=== PATIENT | male | born 1960 | race Caucasian/White ===

== ENCOUNTER 2016-09-10 09:03 | Emergency (ER) | payer OTHER ==
[~2016-09-10] VITALS: Ht 182.9 cm; Wt 104.6 kg
[~2016-09-10 09:03] MED LIST: BACTRIM,SEPT1 TABLET PO; BACTROBAN OINTM22 GM TP; CIPRO500 MG PO; FLAGYL500 MG PO; KEFLEX500 MG PO; MAGNACET PO; NAPRELAN750 MG PO; NAPROSYN500 MG PO; NORCO 5/3251 TABLET PO; PERCOCET 5/31 TABLET PO; VIBRAMYCIN100 MG PO; ZOFRAN ODT4 MG PO
[2016-09-10] MEDS ORDERED: PROTONIX40 MG PO (09:36)
[2016-09-10] MEDS ORDERED: ZYRTEC10 M2 PO (09:36)
[2016-09-10] MEDS ORDERED: LATANOPROST2.5 ML BOTH EYES (09:37)
[2016-09-10] MEDS ORDERED: ALLERGY RELIE15.8 ML BOTH NARES (09:37)
[2016-09-10] MEDS ORDERED: MAGNESIUM400 M1 PO (09:37)
[2016-09-10] MEDS ORDERED: ROSUVASTATIN CA10 MG PO (09:37)
[2016-09-10] MEDS ORDERED: NAPROXEN500 MG PO (10:33)
[2016-09-10] MEDS ORDERED: PREDNISONE20 MG PO (10:33)
[2016-09-10 10:44] VITALS: BP 160/98
== END 2016-09-10 10:44 | disposition home or self-care (01) ==
LOC: EME 09:03
DX: M54.12 Radiculopathy, cervical region (principal); E78.5 Hyperlipidemia, unspecified; Z87.442 Personal history of urinary calculi; Z86.14 Personal history of Methicillin resistant Staphylococcus aureus infection; F17.200 Nicotine dependence, unspecified, uncomplicated
CPT/HCPCS: 72125; 99281; 99283

== ENCOUNTER 2017-02-13 10:16 | Emergency (ER) | payer OTHER ==
[~2017-02-13] VITALS: Ht 182.9 cm; Wt 106.8 kg
[~2017-02-13 10:16] MED LIST changes: +ALLERGY RELIE15.8 ML BOTH NARES; +LATANOPROST2.5 ML BOTH EYES; +MAGNESIUM400 M1 PO; +NAPROXEN500 MG PO; +PREDNISONE20 MG PO; +PROTONIX40 MG PO; +ROSUVASTATIN CA10 MG PO; +ZYRTEC10 M2 PO
[2017-02-13 10:47] LABS: HEMATOCRIT 44.3 % (38.0-50.0); MCH 29.4 PG (29.0-34.0); MCHC 33.6 G/DL (30.0-36.0); MCV 87.5 FL (86-99); MEAN PLAT.VOLUME 9.5 uM^3 (9.0-12.4); PLATELET COUNT 185 K/uL (156-360); RBC DIS.WIDTH-CV 12.5 % (11.8-14.6); RBC DIS.WIDTH-SD 39.9 % (39-53); RED BLOOD COUNT 5.06 M/uL (4.00-5.50); WHITE BLOOD COUNT 6.9 K/uL (4.1-10.2)
[2017-02-13 11:15] LABS: CHLORIDE 105 mEq/L (99-109); POTASSIUM 4.1 mEq/L (3.7-5.4); SODIUM 142 mEq/L (136-147)
[2017-02-13 11:18] LABS: ANION GAP 12 MEQ/L (2-14)
[2017-02-13 11:20] LABS: GFR ESTIMATE (CALCULATED) > 59 mL/min/
[2017-02-13 11:21] LABS: UREA NITROGEN (BUN) 15 mg/dL (9-23)
[2017-02-13 11:40] LABS: GLUCOSE 112 mg/dL (70-99)
[2017-02-13] MEDS ORDERED: GRALISE300 MG PO (12:28)
[2017-02-13] MEDS ORDERED: THERALITH XR T1 EACH PO (12:30)
[2017-02-13] MEDS ORDERED: BRAIN MIGHT-DH1 EACH PO (12:30)
[2017-02-13 12:38] LABS: TOTAL BILIRUBIN 0.4 mg/dL (0.0-1.0)
[2017-02-13 12:39] LABS: ALKALINE PHOSPHATASE 82 IU/L (3-129)
[2017-02-13 12:41] LABS: DIRECT BILIRUBIN 0.2 mg/dL (0.0-0.3)
[2017-02-13 12:42] LABS: LIPASE 42 U/L (1.0-51.0)
[2017-02-13] MEDS ORDERED: ZOFRAN ODT4 MG PO (14:43)
[2017-02-13] MEDS ORDERED: BENTYL20 MG PO (14:43)
[2017-02-13] MEDS ORDERED: CARAFATE1 GM PO (14:43)
[2017-02-13 15:43] VITALS: BP 134/89
== END 2017-02-13 15:44 | disposition home or self-care (01) ==
LOC: EME 10:16
DX: K92.1 Melena (principal); K92.2 Gastrointestinal hemorrhage, unspecified; R10.84 Generalized abdominal pain; Z87.442 Personal history of urinary calculi; E78.5 Hyperlipidemia, unspecified; Z86.14 Personal history of Methicillin resistant Staphylococcus aureus infection; F17.200 Nicotine dependence, unspecified, uncomplicated
CPT/HCPCS: 74177; 80048; 80076; 83690; 85027; 86900; 86901; 99281; 99284; J1885; J7040

== ENCOUNTER 2017-08-31 07:34 | Emergency (ER) | payer OTHER ==
[~2017-08-31] VITALS: Ht 182.9 cm; Wt 108.7 kg
[~2017-08-31 07:34] MED LIST changes: +BENTYL20 MG PO; +BRAIN MIGHT-DH1 EACH PO; +CARAFATE1 GM PO; +GRALISE300 MG PO; +THERALITH XR T1 EACH PO
[2017-08-31] MEDS ORDERED: FLONASE16 G1 BOTH NARES (07:53)
[2017-08-31] MEDS ORDERED: AUGMENTIN875 MG PO (07:53)
[2017-08-31 08:05] VITALS: BP 121/78
== END 2017-08-31 08:06 | disposition home or self-care (01) ==
LOC: EME 07:34
DX: J32.9 Chronic sinusitis, unspecified (principal); Z88.2 Allergy status to sulfonamides; F17.200 Nicotine dependence, unspecified, uncomplicated
CPT/HCPCS: 99281; 99283

== ENCOUNTER 2018-03-01 08:29 | Emergency (ER) | payer OTHER ==
[~2018-03-01] VITALS: Ht 182.9 cm; Wt 108.9 kg
[~2018-03-01 08:29] MED LIST changes: +AUGMENTIN875 MG PO; +FLONASE16 G1 BOTH NARES
[2018-03-01 09:11] LABS: BASOPHIL (%) 0.5 % (0-1); EOSINOPHIL (%) 2.2 % (0-5); EOSINOPHIL COUNT 0.2 K/uL (0-0.3); HEMATOCRIT 43.8 % (38.0-50.0); HEMOGLOBIN 15.3 G/DL (12.5-16.6); IMMATURE GRANULOCYTE (%) 0.4 % (0.0-0.7); LYMPHOCYTE (%) 20.6 % (15-42); LYMPHOCYTE COUNT 1.5 K/uL (1.0-2.8); MCH 30.4 PG (29.0-34.0); MCHC 34.9 G/DL (30.0-36.0); MCV 86.9 FL (86-99); MONOCYTE COUNT 0.4 K/uL (0-0.8); NEUTROPHIL (%) 71.3 % (45-76); NEUTROPHIL COUNT 5.3 K/uL (1.8-6.4); PLATELET COUNT 194 K/uL (156-360); RBC DIS.WIDTH-CV 12.8 % (11.8-14.6); RBC DIS.WIDTH-SD 40.1 % (39-53); RED BLOOD COUNT 5.04 M/uL (4.00-5.50); WHITE BLOOD COUNT 7.4 K/uL (4.1-10.2)
[2018-03-01 09:21] LABS: CHLORIDE 103 mEq/L (99-109); POTASSIUM 4.9 mEq/L (3.7-5.4); SODIUM 140 mEq/L (136-147)
[2018-03-01 09:23] LABS: GLUCOSE 125 mg/dL (70-99)
[2018-03-01 09:26] LABS: CREATININE 1.2 mg/dL (0.6-1.3); GFR ESTIMATE (CALCULATED) > 59 mL/min/ (58.99-99999)
[2018-03-01 09:27] LABS: UREA NITROGEN (BUN) 13 mg/dL (9-23)
[2018-03-01 09:51] LABS: APPEARANCE CLEAR ((CLEAR)); BILIRUBIN NEGATIVE; BLOOD SMALL; COLOR AMBER ((YELLOW)); GLUCOSE (STRIP) NEGATIVE; KETONES NEGATIVE; LEUKOCYTES NEGATIVE; NITRITE NEGATIVE; PROTEIN (STRIP) 30; SPECIFIC GRAVITY 1.026 (1.000-1.030)
[2018-03-01 10:05] LABS: BACTERIA NONE SEEN /HPF; EPITHELIAL CELLS RARE /HPF; HYALINE CASTS 0-5 /LPF; MUCUS 2+ /LPF; RED BLOOD CELLS 0-5 /HPF (0-5); WHITE BLOOD CELLS 0-5 /HPF (0-5)
[2018-03-01] MEDS ORDERED: CIPRO500 MG PO (12:17)
[2018-03-01] MEDS ORDERED: FLAGYL500 MG PO (12:17)
[2018-03-01] MEDS ORDERED: TYLENOL WITH C1 EACH PO (12:17)
[2018-03-01 12:30] VITALS: BP 132/87
== END 2018-03-01 12:30 | disposition home or self-care (01) ==
LOC: EME 08:29
PROVIDERS: Emergency Medicine
DX: K57.32 Diverticulitis of large intestine without perforation or abscess without bleeding (principal); E78.5 Hyperlipidemia, unspecified; Z87.442 Personal history of urinary calculi; Z88.2 Allergy status to sulfonamides; F17.200 Nicotine dependence, unspecified, uncomplicated
CPT/HCPCS: 74177; 80048; 81003; 85025; 99281; 99285; J2270; J2405; J7030